=== PATIENT | male | born 1970 | race African-American/Black ===

== ENCOUNTER 2024-03-22 15:17 | Inpatient (IN) | payer MEDICAID ==
[~2024-03-22] VITALS: Ht 165.1 cm; Wt 83.9 kg
[2024-03-22] MEDS ORDERED: VANCOMYCIN 1G PREMIX 200 ML IV ONE (17:30)
[2024-03-22] MEDS: PIPERACILLIN/TAZO 3.375G/50ML 50 ML IV ONE (18:17)
[2024-03-22 18:32] LABS: BASOPHILS % 0.8 % (0.0-2.0); EOSINOPHILS % 0.2 % (0.0-5.0); HEMATOCRIT. 42.9 % (42.0-52.0); HEMOGLOBIN. 14.4 g/dL (14.0-18.0); LYMPHOCYTES % 21.2 % (20.0-50.0); MEAN CORPUSCULAR HEMOGLOBIN 28.9 pg (28.0-32.0); MEAN CORPUSCULAR HGB CONC 33.5 g/dL (31.0-37.0); MEAN CORPUSCULAR VOLUME 86.5 fL (80.0-94.0); MEAN PLATELET VOLUME 8.6 fl (7.4-10.4); MONOCYTES % 7.7 % (2.0-8.0); NEUTROPHILS % 70.1 % (40.0-76.0); PLATELET 261 x1000/uL (130-400); RED BLOOD CELL COUNT 4.96 mill/uL (4.7-6.1); RED CELL DISTRIBUTION WIDTH 14.7 % (11.6-14.6); WHITE BLOOD COUNT 7.7 x1000/uL (4.5-11.0)
[2024-03-22 18:36] LABS: CARBON DIOXIDE 27 mEq/L (21-32); CHLORIDE 103 mEq/L (98-107); POTASSIUM 3.9 mEq/L (3.5-5.1); SODIUM 136 mEq/L (136-145)
[2024-03-22 18:41] LABS: CREATININE 0.9 mg/dL (0.6-1.3); URIC ACID 4.3 mg/dL (3.7-9.2)
[2024-03-22 18:42] LABS: GLUCOSE 334 mg/dL (70-105); UREA NITROGEN BLOOD 10 mg/dL (9-23)
[2024-03-22 18:43] LABS: ALANINE AMINOTRANSFERASE 25 IU/L (10-49); ALBUMIN 4.6 g/dL (3.2-4.8); ASPARTATE AMINOTRANSFERASE 16 IU/L (<34)
[2024-03-22 18:44] LABS: BILIRUBIN TOTAL 0.4 mg/dL (0.1-1.0)
[2024-03-22] MEDS: VANCOMYCIN 1GM PMX (XELLIA) 200 ML IV SCH (18:45)
[2024-03-22 18:47] LABS: CLARITY URINE CLEAR (CLEAR); COLOR URINE YELLOW (YELLOW); GLUCOSE URINE 3+ (NEGATIVE); KETONES URINE TRACE (NEGATIVE); LEUKOCYTE ESTERASE URINE NEGATIVE (NEGATIVE); NITRITE URINE NEGATIVE (NEGATIVE); OCCULT BLOOD URINE NEGATIVE (NEGATIVE); PROTEIN URINE TRACE (NEGATIVE); SPECIFIC GRAVITY URINE 1.031 (1.005-1.030); UROBILINOGEN URINE 0.2 E.U./dL (0.2-1.0)
[2024-03-22 18:57] LABS: BILIRUBIN DIRECT < 0.1 mg/dL (<=3.0)
[2024-03-22] MEDS: SODIUM CHLORIDE 0.9% 1,000 ML IV ONE ×2 (19:06→20:59)
[2024-03-22 19:13] LABS: BACTERIA URINE TRACE; RBC URINE 0-2 /hpf (0-2); SQUAMOUS EPITHELIAL CELL URINE FEW /lpf (RARE/1+); WBC URINE 0-2 /hpf (0-2)
[2024-03-22] MEDS ORDERED: DEXTROSE 50% WATER 50ML SYRINGE IV PRN (22:15)
[2024-03-22] MEDS ORDERED: IPRATROPIUM/ALBUTEROL 0.5-3(2.5)MG/3ML NEB HHN PRN (22:15)
[2024-03-22] MEDS ORDERED: ONDANSETRON HCL 4MG/2ML INJ IV PRN (22:15)
[2024-03-22] MEDS ORDERED: ACETAMINOPHEN 325MG TABLET PO PRN (22:15)
[2024-03-22] MEDS ORDERED: MAGNESIUM/ALUMINUM HYDROXIDE/SIMETHICONE 30ML UDC PO PRN (22:15)
[2024-03-22 22:21] LABS: CHLORIDE 107 mEq/L (98-107); POTASSIUM 4.2 mEq/L (3.5-5.1); SODIUM 137 mEq/L (136-145)
[2024-03-22 22:22] LABS: CARBON DIOXIDE 24 mEq/L (21-32)
[2024-03-22 22:23] LABS: CALCIUM 9.1 mg/dL (8.7-10.4)
[2024-03-22 22:27] LABS: CREATININE 0.8 mg/dL (0.6-1.3); GLUCOSE 318 mg/dL (70-105)
[2024-03-22 22:28] LABS: UREA NITROGEN BLOOD 9 mg/dL (9-23)
[2024-03-22 22:30] LABS: LACTIC ACID 2.2 mmol/L (0.4-2.0)
[2024-03-22] MEDS: CLONIDINE 0.1MG TABLET PO PRN (23:06)
[2024-03-23] VITALS: BP 158/88; PULSE 86; RESP 20; TEMP 36.78072; O2SAT 98
[2024-03-23 00:24] VITALS: BP 173/91; PULSE 83; RESP 18; TEMP 36.8628
[2024-03-23] MEDS: VANCOMYCIN 750MG/250ML 250 ML IV SCH (01:20)
[2024-03-23] MEDS: PIPERACILLIN/TAZO 3.375G/50ML 50 ML IV SCH (05:32)
[2024-03-23] MEDS: INSULIN LISPRO 100 UNITS/ML SUBCUT SCH (06:25)
[2024-03-23] MEDS: BLOOD SUGAR DIAGNOSTIC STRIP TEST SCH (06:25)
[2024-03-23 08:00] VITALS: BP 143/79; PULSE 88; RESP 20; TEMP 35.8362; O2SAT 100
[2024-03-23] MEDS: FAMOTIDINE 20MG TABLET PO SCH (08:58)
[2024-03-23] MEDS ORDERED: AMLODIPINE 5MG TABLET PO SCH (09:00)
[2024-03-23] MEDS: AMLODIPINE 5MG TABLET PO SCH ×2 (09:01→21:12)
[2024-03-23] MEDS: INSULIN GLARGINE 100 UNITS/ML SUBCUT SCH (09:05)
[2024-03-23 10:51] LABS: BASOPHILS % 0.5 % (0.0-2.0); HEMATOCRIT. 38.9 % (42.0-52.0); MEAN CORPUSCULAR HEMOGLOBIN 28.8 pg (28.0-32.0); MEAN CORPUSCULAR HGB CONC 33.5 g/dL (31.0-37.0); MEAN CORPUSCULAR VOLUME 85.9 fL (80.0-94.0); MEAN PLATELET VOLUME 8.4 fl (7.4-10.4); MONOCYTES % 10.9 % (2.0-8.0); NEUTROPHILS % 61.6 % (40.0-76.0); PLATELET 226 x1000/uL (130-400); RED BLOOD CELL COUNT 4.53 mill/uL (4.7-6.1); RED CELL DISTRIBUTION WIDTH 14.3 % (11.6-14.6); WHITE BLOOD COUNT 5.2 x1000/uL (4.5-11.0)
[2024-03-23 11:12] LABS: CALCIUM 9.3 mg/dL (8.7-10.4); CARBON DIOXIDE 25 mEq/L (21-32); CHLORIDE 104 mEq/L (98-107); POTASSIUM 3.9 mEq/L (3.5-5.1); SODIUM 136 mEq/L (136-145)
[2024-03-23 11:17] LABS: CREATININE 0.8 mg/dL (0.6-1.3); GLUCOSE 229 mg/dL (70-105)
[2024-03-23 11:18] LABS: CREATINE KINASE 149 IU/L (46-171); LDL CHOLESTEROL 104 mg/dL (5-100); TRIGLYCERIDE 66 mg/dL (0-150); UREA NITROGEN BLOOD 7 mg/dL (9-23)
[2024-03-23 11:19] LABS: CHOLESTEROL 157 mg/dL (<200); HDL CHOLESTEROL 46 mg/dL (>55); T4 FREE 1.41 ng/dL (0.89-1.76); THYROID STIMULATING HORMONE 1.48 uIU/mL (0.55-4.78)
[2024-03-23 11:20] LABS: PHOSPHORUS 3.8 mg/dL (2.5-4.9)
[2024-03-23 12:00] VITALS: BP 169/88; PULSE 85; RESP 20; TEMP 36.16956; O2SAT 100
[2024-03-23] MEDS: VANCOMYCIN 1GM PMX (XELLIA) 200 ML IV SCH (12:29)
[2024-03-23 16:00] VITALS: BP 152/74; PULSE 84; RESP 18; TEMP 36.33624; O2SAT 100
[2024-03-23 20:00] VITALS: BP 138/76; PULSE 88; RESP 19; TEMP 36.28068; O2SAT 97
[2024-03-23] MEDS ORDERED: FAMOTIDINE 20MG TABLET PO SCH (21:00)
[2024-03-24 08:00] VITALS: BP 173/96; PULSE 93; RESP 18; TEMP 36.44736; O2SAT 99
[2024-03-24 09:23] LABS: BASOPHILS % 0.4 % (0.0-2.0); EOSINOPHILS % 1.2 % (0.0-5.0); HEMATOCRIT. 40.7 % (42.0-52.0); HEMOGLOBIN. 13.9 g/dL (14.0-18.0); LYMPHOCYTES % 27.6 % (20.0-50.0); MEAN CORPUSCULAR HEMOGLOBIN 29.2 pg (28.0-32.0); MEAN CORPUSCULAR HGB CONC 34.2 g/dL (31.0-37.0); MEAN CORPUSCULAR VOLUME 85.4 fL (80.0-94.0); MEAN PLATELET VOLUME 8.8 fl (7.4-10.4); MONOCYTES % 8.2 % (2.0-8.0); NEUTROPHILS % 62.6 % (40.0-76.0); PLATELET 243 x1000/uL (130-400); RED BLOOD CELL COUNT 4.77 mill/uL (4.7-6.1); RED CELL DISTRIBUTION WIDTH 14.7 % (11.6-14.6)
[2024-03-24 09:27] LABS: CARBON DIOXIDE 27 mEq/L (21-32); CHLORIDE 108 mEq/L (98-107); POTASSIUM 3.8 mEq/L (3.5-5.1); SODIUM 142 mEq/L (136-145)
[2024-03-24 09:28] LABS: CALCIUM 9.7 mg/dL (8.7-10.4)
[2024-03-24 09:32] LABS: CREATININE 0.7 mg/dL (0.6-1.3); GLUCOSE 150 mg/dL (70-105)
[2024-03-24 09:33] LABS: UREA NITROGEN BLOOD 9 mg/dL (9-23)
[2024-03-24 09:35] LABS: PHOSPHORUS 4.2 mg/dL (2.5-4.9)
[2024-03-24] MEDS ORDERED: LIDOCAINE HCL/EPINEPHRINE 1%-EPI 1:100,000 50ML VIAL INFIL NR (10:30)
[2024-03-24] MEDS ORDERED: LIDOCAINE HCL/EPINEPHRINE 1%-EPI 1:100,000 20ML VIAL INFIL NR (10:30)
[2024-03-24 12:00] VITALS: BP 135/68; PULSE 85; RESP 16; TEMP 36.22512; O2SAT 99
[2024-03-24] MEDS ORDERED: ATOR10TA PO (13:49)
[2024-03-24] MEDS ORDERED: METF-414 PO (13:49)
[2024-03-24] MEDS ORDERED: LISI-186 PO (13:49)
[2024-03-24] MEDS ORDERED: CIPR500T5 PO (13:49)
[2024-03-24] MEDS ORDERED: AMLO5TAB4 PO (13:49)
[2024-03-24] MEDS ORDERED: DOXY100T2 PO (13:49)
[2024-03-24 14:13] VITALS: BP 135/68; PULSE 85; TEMP 97.2; O2SAT 99
[2024-03-24] MEDS ORDERED: VANCOMYCIN 1.25GM PMX (XELLIA) 250 ML IV SCH (20:00)
== END 2024-03-24 15:25 | disposition home or self-care (01) | DRG 952 ==
LOC: ER 15:17 → 7EST 20:38 → EDBEDREQ 20:40
PROVIDERS: ADMIT Internal Medicine; ATTEND Internal Medicine
PROC: 0JBJ0ZZ Excision of Right Hand Subcutaneous Tissue and Fascia, Open Approach (ICD-10-PCS; principal; 2024-03-24)
DX: E11.69 Type 2 diabetes mellitus with other specified complication (principal); M86.8X4 Other osteomyelitis, hand; L03.113 Cellulitis of right upper limb; E11.65 Type 2 diabetes mellitus with hyperglycemia; I10 Essential (primary) hypertension; Z79.4 Long term (current) use of insulin
CPT/HCPCS: 36415; 71045; 73130; 73218; 80048; 80061; 80076; 80202; 81003; 82550; 82962; 83036; 83605; 83735; 84100; 84145; 84439; 84443; 84550; 85025; 99285; J1815; J2543; J3370; J3490; J7030

== ENCOUNTER 2025-01-28 14:58 | Emergency (ER) | payer MEDICAID, OTHER ==
[~2025-01-28] VITALS: Ht 167.6 cm; Wt 89.0 kg
[~2025-01-28 14:58] MED LIST: AMLO5TAB6 PO; ATOR10TA PO; CIPR-494 PO; DOXY100T2 PO; LISI-186 PO; METF-414 PO
[2025-01-28 15:04] VITALS: TEMP 36.7; O2SAT 100
[2025-01-28 15:59] LABS: BASOPHILS % 0.6 % (0.0-2.0); EOSINOPHILS % 0.3 % (0.0-5.0); HEMATOCRIT. 42.1 % (42.0-52.0); HEMOGLOBIN. 14.4 g/dL (14.0-18.0); LYMPHOCYTES % 20.1 % (20.0-50.0); MEAN PLATELET VOLUME 9.0 fl (7.4-10.4); MONOCYTES % 7.5 % (2.0-8.0); NEUTROPHILS % 71.5 % (40.0-76.0); PLATELET 255 x1000/uL (130-400); RED BLOOD CELL COUNT 5.02 mill/uL (4.7-6.1); RED CELL DISTRIBUTION WIDTH 13.3 % (11.6-14.6)
[2025-01-28 16:11] LABS: INR 1.0
[2025-01-28 16:12] LABS: CREATININE 1.0 mg/dL (0.6-1.3); UREA NITROGEN BLOOD 11 mg/dL (9-23)
[2025-01-28 16:13] LABS: TROPONIN I HIGH SENSITIVITY < 4 ng/L (3.0-53)
[2025-01-28] MEDS ORDERED: DIPH25CA83 MT (16:35)
[2025-01-28] MEDS ORDERED: FAMO-135 MT (16:35)
[2025-01-28 17:03] VITALS: BP 165/93; PULSE 99; RESP 18; O2SAT 100
== END 2025-01-28 17:12 | disposition home or self-care (01) ==
LOC: ER 14:58
DX: T14.8XXA Other injury of unspecified body region, initial encounter (principal); I10 Essential (primary) hypertension; E11.9 Type 2 diabetes mellitus without complications; Z79.84 Long term (current) use of oral hypoglycemic drugs; Z79.899 Other long term (current) drug therapy; Z91.148 Patient's other noncompliance with medication regimen for other reason; W57.XXXA Bitten or stung by nonvenomous insect and other nonvenomous arthropods, initial encounter; Y93.89 Activity, other specified; Y92.89 Other specified places as the place of occurrence of the external cause; Y99.8 Other external cause status
CPT/HCPCS: 36415; 71045; 80048; 83880; 84484; 85025; 85379; 99284